=== PATIENT | female | born 1950 | race Caucasian/White ===

== ENCOUNTER 2018-04-25 11:04 | Day surgery (SDC) | payer OTHER, SELFPAY ==
--- NOTE | 2018-04-24 12:54 | PCM.HP.BLA ---
History and Physical Date of Admission: 04/25/18 67-year-old female history of overactive bladder urge incontinence we tried Botox with little success she comes back now for another consultation she wants to try interstim therapy. My nurse practitioner spoke extensively about what's involved in with the interstim therapy today I reviewed the procedure can do stage I procedure to place the temporary lead first of this is successful than will do a stage II and it's not successful than will remove the at the second surgery. All her questions are answered just has a hold her aspirin for the procedure. ALLERGIES: Lisinopril Zoloft MEDICATIONS: Aspirin 81 mg tablet,chewable Calcium + D Furosemide Iron Janumet Lantus Solostar 100 unit/ml (3 ml) insulin pen Lovastatin Meloxicam Multivitamin Nitrofurantoin Omeprazole Spironolactone Tramadol Hcl Tricor Venlafaxine Hcl PSH: Cystoscopy,with Botox Injection - 01/09/2018, 02/03/2016 NON- PSH: Patient documented to have received pneumococcal vaccination Pneumococcal Vaccine Admin Total Knee Replacement - 2004 PMH: Acute vaginitis - 11/14/2015 Urge incontinence - 11/14/2015 Urgency of urination - 11/14/2015, - 2015, - 2014, - 2013, - 2013 NON- PMH: Morbid (severe) obesity due to excess calories - 2013 Gastro-esophageal reflux disease without esophagitis Major depressive disorder, single episode, unspecified Mixed hyperlipidemia Type 2 diabetes mellitus without complications Immunizations: None FAMILY HISTORY: None SOCIAL HISTORY: Marital Status: Single Preferred Language: Luxembourgish; Ethnicity: Not Or ; Race: White Current Smoking Status: Patient does not smoke anymore. Smoking cessation counseling was provided. Does not use smokeless tobacco. Does not drink anymore. Does not use drugs. Drinks 4+ caffeinated drinks per day. Has not had a blood transfusion. REVIEW OF SYSTEMS: Constitutional: Patient denies fever, chills, weight loss, and weight gain. Cardiovascular: Patient reports swollen ankles. Patient denies chest pains. Respiratory: Patient denies shortness of breath. Gastrointestinal: Patient denies abdominal pain, nausea/vomiting, and change in bowels. Genitourinary: Patient reports frequent urination, leakage of urine, and frequent urinary tract infections. Patient denies urinary retention, get up at night to void, blood in urine, history of stones, difficulty starting stream, weak stream, and bedwetting. Notes: Updated from previous visit 10/28/2017 with review from patient as noted above. VITAL SIGNS: 04/17/2018 04:11 PM Weight 305 lb / 138.35 kg Height 64 in / 162.56 cm BP 134/78 mmHg BMI 52.3 kg/m? - BMI Counseling was provided. MULTI-SYSTEM PHYSICAL EXAMINATION: Constitutional: Obese. No physical deformities. Normally developed. Good grooming. Neck: Neck symmetrical, not swollen. Normal tracheal position. Cardiovascular: Normal temperature, normal extremity pulses, no swelling, no varicosities. Lymphatic: No enlargement of neck, axillae, groin. Skin: No paleness, no jaundice, no cyanosis. No lesion, no ulcer, no rash. Neurologic / Psychiatric: Oriented to time, oriented to place, oriented to person. No depression, no anxiety, no agitation. Gastrointestinal: Obese abdomen. No mass, no tenderness, no rigidity. Eyes: Normal conjunctivae. Normal eyelids. Musculoskeletal: using a cane. PAST DATA REVIEWED: Source Of History: Patient PROCEDURES: Urinalysis - [address] Dipstick Dipstick Cont'd Specimen: Voided Blood: Neg Appearance: Clear pH: 5.0 Color: Yellow Protein: Neg Glucose: Normal Urobilinogen: Neg Bilirubin: Neg Nitrites: Neg Ketones: Neg Leukocyte Esterase: Neg ASSESSMENT: ICD-10 Details 1 : Urge incontinence - N39.41 2 Urgency of urination - R39.15 3 NON-: Morbid (severe) obesity due to excess calories - E66.01 PLAN: Document Letter(s): Created for Patient: Clinical Summary Notes: 67-year-old female with history of overactive bladder urge incontinence failed medical therapy is still Botox were to proceed with interstim therapy staged implant one and two
[2018-04-25] VITALS (7 sets, daily range): BP systolic 102–130; BP diastolic 58–75; PULSE 83–87; RESP 16–18; TEMP 36.6–36.9; O2SAT 93–100; BMI 53.1
[2018-04-25] MEDS: Cefazolin 2 GM in 0.9% Normal Saline 100 ML IV (07:00)
[2018-04-25 12:00] LABS: Bedside Glucose 126 mg/dL (70-110)
--- NOTE | 2018-04-25 14:24 | DCINST_ITS ---
Discharge Diet: No Restrictions Discharge Activity: Return to Normal Activity, May Not Drive - for 2 days. Additional Activity Instructions:: f you have a catheter, remove on ___. If you have any problems after catheter is removed, call [phone] and ask for your doctor to be paged. Please be aware that pain medications may cause nausea. You should typically eat light foods as you take your pain medication. Pain medication may cause constipation, if this is a problem for you, please discuss with your doctor. Allergies/Adverse Reactions: Allergies lisinopril Adverse Reaction (Verified 04/21/18 10:08) COUGH sertraline [From Zoloft] Adverse Reaction (Verified 04/21/18 10:08) Unknown Medications to take at Discharge Aspirin E.C. [Ecotrin] 81 mg PO DAILY@0800 01/27/16 Calcium Carbonate/Vitamin D3 [Calcium 600-Vit D3 800 Tab] 2 each PO DAILY 01/27/16 Fenofibrate [Tricor] 145 mg PO DAILY 01/27/16 Furosemide [Lasix] 60 mg PO DAILY 01/27/16 Insulin Glargine [Lantus (BKC)] 44 units SC QHS 01/27/16 Lovastatin [Mevacor] 20 mg PO QHS 01/27/16 Multivitamin [Daily Multiple Vitamin] 1 each PO DAILY 01/27/16 Nitrofurantoin Macrocrystals [Macrobid] 100 mg PO DAILY 01/27/16 Sitagliptin Phos/Metformin HCl [Janumet Xr 50-1,000 mg Tablet] 2 tab PO DAILY 01/27/16 Spironolactone [Aldactone] 50 mg PO DAILY 01/27/16 Venlafaxine XR [Effexor Xr] 150 mg PO DAILY 01/27/16 Metoprolol Tartrate [Lopressor (Beta Alexys)] 25 mg PO DAILY 04/21/18 Omeprazole [Prilosec] 20 mg PO DAILY 04/21/18 Acetaminophen [Tylenol Extra Strength] 500 mg PO Q4H PRN PRN #20 tablet 04/25/18 Ibuprofen 600 mg PO Q6H PRN PRN #20 tablet 04/25/18 The following prescriptions were given: Acetaminophen [Tylenol Extra Strength] 500 mg PO Q4H PRN PRN #20 tablet PRN Reason: Pain Ibuprofen 600 mg PO Q6H PRN PRN #20 tablet PRN Reason: Pain Primary Care Physician: Padmini Calderon MD [Primary Care Provider] - Test Results: Test results from this visit will be discussed in further detail at your follow- up appointment, if applicable. Please Follow Up With: Dung Lentz MD When: keep appt for next surgery
--- NOTE | 2018-04-25 14:24 | PCM.OPRPT ---
Report of Operation Date of Procedure: 04/25/18 Pre-Operative Diagnosis: Overactive bladder and urge incontinence Post-Operative Diagnosis: Same Surgery/Procedure Performed:: InterStim stage I Description of Surgical Findings:: 67-year-old female has severe overactive bladder is failed medical therapy she also even failed Botox injections she has poor control of bladder and urge incontinence leakage of urine sudden urge to go and cannot hold her bladder. 67-year-old female taken back to the operating room after smooth induction of MAC local she was placed facedown on the table with a pillow we then prepped and draped the sacrum for InterStim therapy stage I. We used fluoroscopy to identify the sacral promontory's in the right and left side put the needle across to find the S3 foramen and then marked off the edges of the S3 foramen the right and left side, we then tilted the fluoroscopy laterally came in with the first needle we used a long needle because of patient's obesity and introduced the needle and we stimulated appear to be asked to so then we marched 2 cm cephalad tried again again could get in at the numb the periosteum little bit more and then finally I dropped the needle into the patient's right side on the S3 we then stimulated she is very sensitive practically lift off the table to for stimulation then returned on the stimulation we got good perlita and a good motor response of toe. Then after positioning this incision the skin skin and placement lidocaine into the skin and then advanced to the long wire through the trocar pulled the trocar and then advanced the sheath until the radiopaque marker and the sheath was between the anterior and posterior plate of the sacrum and then we advanced the stimulator through the sheath with a with a pre-curved curved set up nicely we then looked at the fluoroscopy we adjust the position of the stimulator so that there was 3 contact points below the posterior plate 1 contact point above the posterior plate we checked 012 and 3 of the stimulator and all 3 of them, all for bone we had good perlita response and toe response after confirming good placement of the lead we then pulled back the sheath the deployed the tines we then tunneled the lead to a pocket put a temporary boot on and temporary extension and template tunneled the temporary extension back we closed the incision over the lead placement and then closed the pocket and then placed the device on the remote with a belt and patient was taken back to the PACU in good condition to undergo training for the InterStim therapy stage I if the successful then she will have she will undergo placement of the generator. We closed the incisions with subcuticular stitches of Monocryl and dressings and bandages were placed. Type of Anesthesia:: General Drains: none - Admit VTE Documentation VTE Present on Admission: No VTE Mechan Device Prophylaxis: SCD's
== END 2018-04-25 15:18 | disposition home or self-care (01) ==
LOC: SDC 11:06 → AC 11:09
PROVIDERS: Family Provider Family Medicine; PCP Family Medicine; Referring Provider Urology; Visit Provider Urology
PROC: (CPT 64581; principal; 2018-04-25 12:40)
DX: N32.81 Overactive bladder (principal); N39.41 Urge incontinence; K21.9 Gastro-esophageal reflux disease without esophagitis; E78.2 Mixed hyperlipidemia; E11.9 Type 2 diabetes mellitus without complications; F32.9 Major depressive disorder, single episode, unspecified; Z87.891 Personal history of nicotine dependence; E66.01 Morbid (severe) obesity due to excess calories; Z68.43 Body mass index [BMI] 50.0-59.9, adult; Z71.3 Dietary counseling and surveillance; Z79.899 Other long term (current) drug therapy; Z79.82 Long term (current) use of aspirin; Z79.4 Long term (current) use of insulin; G47.30 Sleep apnea, unspecified
CPT/HCPCS: 64581; 76000; 82962; J7120; C1778; C1820; J2405

== ENCOUNTER 2018-05-09 05:57 | Day surgery (SDC) | payer OTHER, SELFPAY ==
[2018-04-25 11:41] VITALS: BMI 53.1
[2018-05-09 06:17] VITALS: BP 128/95; PULSE 84; RESP 16; TEMP 36.7; O2SAT 99; BMI 52.8
[2018-05-09 06:31] LABS: Bedside Glucose 143 mg/dL (70-110)
[2018-05-09] MEDS: Cefazolin 2 GM in 0.9% Normal Saline 100 ML IV (07:22)
--- NOTE | 2018-05-09 07:28 | HP.PCM_ITS ---
History and Physical Date of Admission: 05/09/18 67-year-old female history of overactive bladder urge incontinence we tried Botox with little success she comes back now for another consultation she wants to try interstim therapy. My nurse practitioner spoke extensively about what's involved in with the interstim therapy today I reviewed the procedure can do stage I procedure to place the temporary lead first of this is successful than will do a stage II and it's not successful than will remove the at the second surgery. All her questions are answered just has a hold her aspirin for the procedure. ALLERGIES: Lisinopril Zoloft MEDICATIONS: Aspirin 81 mg tablet,chewable Calcium + D Furosemide Iron Janumet Lantus Solostar 100 unit/ml (3 ml) insulin pen Lovastatin Meloxicam Multivitamin Nitrofurantoin Omeprazole Spironolactone Tramadol Hcl Tricor Venlafaxine Hcl PSH: Cystoscopy,with Botox Injection - 01/09/2018, 02/03/2016 NON- PSH: Patient documented to have received pneumococcal vaccination Pneumococcal Vaccine Admin Total Knee Replacement - 2004 PMH: Acute vaginitis - 11/14/2015 Urge incontinence - 11/14/2015 Urgency of urination - 11/14/2015, - 2015, - 2014, - 2013, - 2013 NON- PMH: Morbid (severe) obesity due to excess calories - 2013 Gastro-esophageal reflux disease without esophagitis Major depressive disorder, single episode, unspecified Mixed hyperlipidemia Type 2 diabetes mellitus without complications Immunizations: None FAMILY HISTORY: None SOCIAL HISTORY: Marital Status: Single Preferred Language: Luxembourgish; Ethnicity: Not Or ; Race: White Current Smoking Status: Patient does not smoke anymore. Smoking cessation counseling was provided. Does not use smokeless tobacco. Does not drink anymore. Does not use drugs. Drinks 4+ caffeinated drinks per day. Has not had a blood transfusion. REVIEW OF SYSTEMS: Constitutional: Patient denies fever, chills, weight loss, and weight gain. Cardiovascular: Patient reports swollen ankles. Patient denies chest pains. Respiratory: Patient denies shortness of breath. Gastrointestinal: Patient denies abdominal pain, nausea/vomiting, and change in bowels. Genitourinary: Patient reports frequent urination, leakage of urine, and frequent urinary tract infections. Patient denies urinary retention, get up at night to void, blood in urine, history of stones, difficulty starting stream, weak stream, and bedwetting. Notes: Updated from previous visit 10/28/2017 with review from patient as noted above. VITAL SIGNS: 04/17/2018 04:11 PM Weight 305 lb / 138.35 kg Height 64 in / 162.56 cm BP 134/78 mmHg BMI 52.3 kg/m? - BMI Counseling was provided. MULTI-SYSTEM PHYSICAL EXAMINATION: Constitutional: Obese. No physical deformities. Normally developed. Good grooming. Neck: Neck symmetrical, not swollen. Normal tracheal position. Cardiovascular: Normal temperature, normal extremity pulses, no swelling, no varicosities. Lymphatic: No enlargement of neck, axillae, groin. Skin: No paleness, no jaundice, no cyanosis. No lesion, no ulcer, no rash. Neurologic / Psychiatric: Oriented to time, oriented to place, oriented to person. No depression, no anxiety, no agitation. Gastrointestinal: Obese abdomen. No mass, no tenderness, no rigidity. Eyes: Normal conjunctivae. Normal eyelids. Musculoskeletal: using a cane. PAST DATA REVIEWED: Source Of History: Patient PROCEDURES: Urinalysis - [address] Dipstick Dipstick Cont'd Specimen: Voided Blood: Neg Appearance: Clear pH: 5.0 Color: Yellow Protein: Neg Glucose: Normal Urobilinogen: Neg Bilirubin: Neg Nitrites: Neg Ketones: Neg Leukocyte Esterase: Neg ASSESSMENT: ICD-10 Details 1 : Urge incontinence - N39.41 2 Urgency of urination - R39.15 3 NON-: Morbid (severe) obesity due to excess calories - E66.01 PLAN: Document Letter(s): Created for Patient: Clinical Summary Notes: 67-year-old female with history of overactive bladder urge incontinence failed medical therapy, s/p stage I interstim therapy and had a successful trail plan to proceed with stage II interstim therapy.
--- NOTE | 2018-05-09 07:30 | DCINST_ITS ---
Discharge Diet: Light diet - advance as tolerated Discharge Activity: May Shower May shower in (days): 2 Call your doctor if your incision/area has: Continuous Slow Oozing, Sudden Increased Bleeding, Increased Pain/ Swelling, Increased Redness Allergies/Adverse Reactions: Allergies lisinopril Adverse Reaction (Verified 05/07/18 14:03) COUGH sertraline [From Zoloft] Adverse Reaction (Verified 05/07/18 14:03) Unknown Medications to take at Discharge Aspirin E.C. [Ecotrin] 81 mg PO DAILY@0800 01/27/16 Calcium Carbonate/Vitamin D3 [Calcium 600-Vit D3 800 Tab] 2 each PO DAILY 01/27/16 Fenofibrate [Tricor] 145 mg PO DAILY 01/27/16 Furosemide [Lasix] 60 mg PO DAILY 01/27/16 Insulin Glargine [Lantus (BKC)] 44 units SC QHS 01/27/16 Lovastatin [Mevacor] 20 mg PO QHS 01/27/16 Multivitamin [Daily Multiple Vitamin] 1 each PO DAILY 01/27/16 Nitrofurantoin Macrocrystals [Macrobid] 100 mg PO DAILY 01/27/16 Sitagliptin Phos/Metformin HCl [Janumet Xr 50-1,000 mg Tablet] 2 tab PO DAILY 01/27/16 Spironolactone [Aldactone] 50 mg PO DAILY 01/27/16 Venlafaxine XR [Effexor Xr] 150 mg PO DAILY 01/27/16 Metoprolol Tartrate [Lopressor (Beta Alexys)] 25 mg PO DAILY 04/21/18 Omeprazole [Prilosec] 20 mg PO DAILY 04/21/18 Acetaminophen [Tylenol Extra Strength] 500 mg PO Q4H PRN PRN #20 tablet 04/25/18 Ibuprofen 600 mg PO Q6H PRN PRN #20 tablet 04/25/18 Primary Care Physician: Padmini Calderon MD [Primary Care Provider] - Test Results: Test results from this visit will be discussed in further detail at your follow- up appointment, if applicable. Please Follow Up With: Dung Lentz MD When: in 2 weeks, please call to make an appointment.
--- NOTE | 2018-05-09 07:51 | PCM.OPRPT ---
Report of Operation Date of Procedure: 05/09/18 Pre-Operative Diagnosis: Urge incontinence, status post stage I successful InterStim Post-Operative Diagnosis: Same Surgery/Procedure Performed:: Stage II InterStim implant Description of Surgical Findings:: 67-year-old female was taken back to the operating room after smooth induction of MAC local she was placed down on the table the bandages from the prior stage I InterStim were removed the back and site of the stage II lead was prepped and draped in usual sterile fashion, we infiltrated the skin with lidocaine 1% along the old site where the temporary lead was attached to the permanent lead. Using knife 15 blade knife to cut through the skin and then get through the dermis layer and then used sharp dissection to dissect down to the lead I then pulled the lead up took off the boot off the temporary extension cut off the suture pulled back the boot and then used the screw in the kit to unscrew the extension lead to the permanent lead. I then cut the extension lead and then the lead was then pulled out from underneath the drapes by the nursing staff. We then cleaned the permanent lead to remove all fluid and any blood I then brought the generator in place we put the generator onto the permanent lead and put it all the way through until all blue was showing to the indicators and then screwed down the bulk with 2 clicks. We then made a pocket and put the generator into the pocket with the [id number] sign face up we then tested for impedance impedance levels were low all below 4000, [employer] rep then checked the permanent lead to the generator and appear to be working functionally properly with low impedance. We then closed the skin with 3-0 Vicryl and then a 4-0 Monocryl Steri-Strips and bandages were placed the patient anesthetic was reversed and she was taken back to PACU in good condition. Type of Anesthesia:: General Drains: none - Admit VTE Documentation VTE Present on Admission: No VTE Mechan Device Prophylaxis: SCD's
[2018-05-09 07:57] VITALS: BP 112/67; BP 128/95; PULSE 82; RESP 18; TEMP 36.9; O2SAT 99
[2018-05-09 08:05] VITALS: BP 114/67; BP 128/95; PULSE 81; RESP 18; O2SAT 95
[2018-05-09 08:10] VITALS: BP 128/95; BP 98/51; PULSE 79; RESP 18; O2SAT 95
[2018-05-09 08:13] VITALS: BP 117/69; BP 128/95; PULSE 79; RESP 18; TEMP 36.8; O2SAT 96
[2018-05-09 09:15] VITALS: BP 128/95
== END 2018-05-09 09:15 | disposition home or self-care (01) ==
LOC: SDC 05:57 → AC 05:58
PROVIDERS: Family Provider Family Medicine; PCP Family Medicine; Referring Provider Urology; Visit Provider Urology
PROC: (CPT 64590; principal; 2018-05-09 07:20)
DX: N39.41 Urge incontinence (principal); N32.81 Overactive bladder; Z79.899 Other long term (current) drug therapy; Z79.82 Long term (current) use of aspirin; F32.9 Major depressive disorder, single episode, unspecified; K21.9 Gastro-esophageal reflux disease without esophagitis; E78.2 Mixed hyperlipidemia; E11.9 Type 2 diabetes mellitus without complications; E66.01 Morbid (severe) obesity due to excess calories; Z68.43 Body mass index [BMI] 50.0-59.9, adult; Z71.3 Dietary counseling and surveillance
CPT/HCPCS: 00400; 64590; 95972; 82962; J7120; C1767; J2405

== ENCOUNTER → 2018-05-29 16:51 | Outpatient (CLI) | payer OTHER, SELFPAY ==
[2018-05-09 06:17] VITALS: BMI 52.8
== END ==
PROVIDERS: Referring Provider Urology; Visit Provider Urology
DX: N39.0 Urinary tract infection, site not specified (principal)
CPT/HCPCS: 87077; 87086; 87088; 87186

== ENCOUNTER → 2021-11-22 | Outpatient (CLI) | payer MEDICARE, MEDICAID, SELFPAY ==
--- NOTE | 2021-11-22 14:00 | RAD_ITS ---
FLUOROSCOPIC GUIDED RIGHT SHOULDER STEROID INJECTION W/ ARTHROGRAM CLINICAL HISTORY: Shoulder pain, arthritis PERFORMING PHYSICIAN: Maged Munson MD DATE OF PROCEDURE: 11/22/2021. CAT SCAN TECHNOLOGIST: None. ESTIMATED BLOOD LOSS: Negligible SPECIMENS REMOVED: None COMPLICATIONS: None CONSENT: Informed, written consent was obtained from the patient, prior to procedure and following discussion of risks, benefits, alternatives and personnel. Fluoroscopy time 1:00 minutes. Contrast: 2 mL of Omnipaque 300 7 mL. The patient was positioned supine on the fluoroscopy table. The right shoulder was prepared in standard, sterile fashion. The overlying skin was anesthetized with Lidocaine. A 20 gauge spinal needle was advanced into the joint space. A small amount of contrast was injected confirming positioning after which a mixture of 2 mL of Bethamethasone and 4 mL of LIDOCAINE 1% was injected. The needle was withdrawn and sterile dressing was applied.. RAD/Inj/Asp Onel Jt Should/Hip/Knee IMPRESSION: 1. Uneventful right shoulder joint steroid injection. Electronically Signed: Junaid Munson MD at 15:21 EDT ,
[2021-11-22] MEDS: Lidocaine 2% (10 ml mdv) 10 ML Vial (14:13)
[2021-11-22] MEDS: Lidocaine 1% (20 ml mdv) 20 ML Vial 4 ML OPERA.SITE (14:15)
[2021-11-22] MEDS: Betamethasone/Betamethasone 30 MG/5 ML Vial 12 MG INTRAARTIC (14:15)
== END | disposition home or self-care (01) ==
PROVIDERS: PCP Family Medicine; Visit Provider Specialist
DX: M75.41 Impingement syndrome of right shoulder (principal)
CPT/HCPCS: 20610; 77002; Q9965; J0702

== ENCOUNTER 2023-08-23 05:05 | Day surgery (SDC) | payer MEDICARE, MEDICAID, SELFPAY ==
[2023-08-23] VITALS (7 sets, daily range): BP systolic 110–132; BP diastolic 52–71; PULSE 77–95; RESP 16–18; TEMP 36.4–36.8; O2SAT 99–100; BMI 48.4
[2023-08-23] MEDS: Lactated Ringers 1,000 ML 15 ML IV (06:28)
[2023-08-23 06:42] LABS: Bedside Glucose 137 mg/dL (74-106)
--- NOTE | 2023-08-23 06:47 | PRE.ANES_ITS ---
ASA Classification* ASA Classification ASA Classification: 3 Assessment & Plan Anesthesia* Anesthesia Assessment Anesthesia Assessment: Discussed sedation and/or anesthesia options, risks, benefits, and alternatives with patient/parents/legal guardian/POA. Questions invited. The patient/parents/legal guardian/POA seems to understand and agrees to proceed with anesthesia plan. Reviewed the physical assessment, medical history, allergy history and patient home medications list prior to surgery/procedure/anesthetic and documented any changes. Performed airway and anesthesia risk assessments. Anesthesia Type Anesthesia Type: MAC (GA bkup) Pre-Assessment Diagnosis/Proposed Procedure Planned Operative Procedure(s): REMOVAL INSTERSTIM THERAPY 1 Anesthesia History Anesthesia History - redrawer: Anesthesia History - redrawer Hx Hospitalization No 08/12/23 09:20 Any Problems With Anesthesia No 08/12/23 09:20 Cholinesterase deficiency No 08/12/23 09:20 You/Your Family Experience No 08/12/23 09:20 fever (hyperthermia) with Relationship Recent Exposure to Contagious No 08/23/23 06:02 Disease Does patient have nerve No 08/12/23 09:20 stimulator Patient instructed to have device shut off --Does patient have Pacemaker No 08/23/23 06:08 or ICD? When Was Last Pacemaker Check QUESTION #4 FULL TEXT: You/Your Family Experience fever (hyperthermia) with Anesthesia Last Oral Intake Last Oral intake: Last Oral Intake NPO since 20:30 08/23/23 06:08 Meds taken in AM with sips of No 08/23/23 06:08 water? Meds patient instructed to take am of surgery PONV PONV - redrawer: PONV - redrawer Female Yes 08/12/23 09:20 HX of Motion Sickness No 08/12/23 09:20 HX of N/V After Surgery No 08/12/23 09:20 Non-Smoker Yes 08/12/23 09:20 Duration of Surgery greater No 08/12/23 09:20 than 60 minutes Number of Risk Factors 2 08/12/23 09:20 PONV Score Moderate Risk 08/12/23 09:20 Height & Weight Height & Weight: Anesthesia: Height & Weight Height 5 ft 4 in 08/23/23 06:08 Weight: 127.913 kg 08/23/23 06:08 Body Mass Index (BMI) 48.4 08/23/23 06:08 Respiratory Assessment Respiratory Assessment - redrawer: Respiratory Tract Infection Hx - redrawer Hx Respiratory Tract Infection No 08/12/23 09:20 STOP Sleep Apnea STOP Sleep Apnea - redrawer: STOP Sleep Apnea - redrawer Hx Hypertension Yes: CONTROLLED WITH MED 08/12/23 09:20 Hx Sleep Apnea Yes 08/12/23 09:20 CPAP No 08/12/23 09:20 BIPAP Yes 08/12/23 09:20 Do you snore loudly (louder than talking or can be heard Do you often feel tired/ fatigued/ sleepy during daytime? Has anyone observed you stop breathing during sleep? STOP Results Positive 08/12/23 09:20 QUESTION #5 FULL TEXT : Do you snore loudly (louder than talking or can be heard through closed doors)? 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 Specify any problems Hx of Preganancy in last 3 No 08/12/23 09:20 Months Nurse Filling Out Transfusion DSCHRIBER 08/12/23 09:20 & Questions: Date: 08/12/23 08/12/23 09:20 Time: 09:08/12/23 09:20 Patient unable to answer at this time (ie. confused, unrespo /Reproduction History /Reproductive History - redrawer: /Reproductive Hx- redrawer Hx Now No 08/12/23 09:20 Gestational Age (in weeks): EDC: Hx Hx Para Hx Section SAB No 08/12/23 09:20 Active Medications Active Medications: Current Medications Generic Name Dose Route Start Last Admin Trade Name Freq PRN Reason Stop Dose Admin Cefazolin Sodium 2 gm/ Sodium 110 mls @ 150 mls/hr 08/23/23 07:30 Chloride IV 08/23/23 08:13 PREOP ONE Lactated Ringer's 1,000 mls @ 15 mls/hr 08/23/23 05:45 08/23/23 06:28 IV 15 mls/hr .Q48H MADONNA Administration Anesthesia Focused Assessment* Temperature: 97.6 F Pulse Rate: 87 Blood Pressure: 132/52 Respiratory Rate: 18 Pulse Ox: 100 Airway Assessment Mouth opens: >3 cm Mallampati Score: III Focused Labs Anesthesia Preop lab: CBC CHEMISTRY Creatinine 0.89 mg/dL (0.55-1.02) 05/11/20 14:15 POC Glucose 137 mg/dL (74-106) H 08/23/23 05:56 COAG Review of Systems (Anesthesia) ROS Narrative System reviewed and no additional complaints, except as documented. [facility] Medical History BiPAP (biphasic positive airway pressure) dependence Wears hearing aid Wears glasses Cancer Depression Anxiety History of steroid therapy Insulin dependent diabetes mellitus Ambulates with cane Arthritis Bladder disease Low iron High cholesterol Hx of diabetic neuropathy Restless legs Syncope Dietary restriction Gastric reflux Former smoker Asthma COPD (chronic obstructive pulmonary disease) Shortness of breath on exertion History of edema History of echocardiogram History of stress test Cardiology follow-up encounter Hypertension Home Medications ?Medication ?Instructions ?Recorded ?Last Taken ?Type calcium carbonate 600 mg-vitamin 1 tab PO DAILY SUPPLEMENT 01/27/16 08/22/23 History D3 20 mcg (800 unit) tablet fenofibrate nanocrystallized 145 145 mg PO QHS CHOLESTEROL 01/27/16 08/22/23 History mg tablet furosemide 40 mg tablet 60 mg PO DAILY HTN 01/27/16 08/22/23 History insulin glargine 100 unit/mL (3 37 unit subcut QHS DIABETES 01/27/16 08/22/23 History mL) subcutaneous pen (Lantus 15 unit Solostar U-100 Insulin) lovastatin 20 mg tablet 20 mg PO QHS CHOLESTEROL 01/27/16 08/22/23 History multivitamin (Daily Multiple 1 ea PO DAILY SUPPLEMENT 01/27/16 08/22/23 History tablet) nitrofurantoin 100 mg PO BID BLADDER 01/27/16 08/22/23 History monohydrate/macrocrystals 100 mg capsule spironolactone 100 mg tablet 50 mg PO DAILY HTN 01/27/16 08/22/23 History (Aldactone) venlafaxine 150 mg 150 mg PO DAILY DEPRESSION 01/27/16 08/22/23 History capsule,extended release 24 hr omeprazole 20 mg capsule,delayed 20 mg PO DAILY GERD 04/21/18 08/22/23 History release ibuprofen 600 mg tablet 600 mg PO Q6H PRN PRN Pain #20 tabs 04/25/18 Unknown Rx albuterol 90 mcg/actuation aerosol 90 mcg inhalation BID PRN PRN 08/12/23 08/22/23 History inhaler shortness of breath or wheezing blood-glucose sensor (FreeStyle 08/12/23 Unknown History Marta 3 Sensor device) cholecalciferol (vitamin D3) 25 25 mcg PO DAILY 08/12/23 08/22/23 History mcg (1,000 unit) capsule (Vitamin D3) dulaglutide 3 mg/0.5 mL 3 mg subcut WE 08/12/23 08/22/23 History subcutaneous pen injector (Trulicity) fluticasone propionate 115 2 inh inhalation BID 08/12/23 08/22/23 History mcg-salmeterol 21 mcg/actuation HFA inhaler (Advair HFA) fluticasone propionate 50 1 spray intranasal DAILY 08/12/23 08/22/23 History mcg/actuation nasal spray,suspension levocetirizine 5 mg tablet 5 mg PO QHS 08/12/23 08/22/23 History losartan 25 mg tablet 25 mg PO DAILY 08/12/23 08/22/23 History mirabegron 50 mg tablet,extended 50 mg PO DAILY 08/12/23 08/22/23 History release 24 hr (Myrbetriq) tolterodine 4 mg capsule,extended 4 mg PO DAILY 08/12/23 08/22/23 History release 24 hr Allergy/AdvReac Type Severity Reaction Status Date / Time lisinopril AdvReac COUGH Verified 08/23/23 05:57 sertraline (From Zoloft) AdvReac Unknown Verified 08/23/23 05:57 Surgical History History of cardiac catheterization Hx of right cataract extraction Hx of left cataract extraction History of esophagogastroduodenoscopy (EGD) Hx of colonoscopy History of cystoscopy Hx of tonsillectomy Hx of tubal ligation Hx of total knee arthroplasty Hx of total knee arthroplasty Hx of cystoscopy Social History Smoking Status: Former smoker
[2023-08-23] MEDS: Cefazolin 2 GM in 0.9% Normal Saline (100mL Bag) 100 ML IV (07:25)
[2023-08-23] MEDS: Lidocaine 1% (30 ml sdv) 30 ML Vial (07:33)
--- NOTE | 2023-08-23 08:06 | PCM.HP.STD ---
HPI - General General Date of Service: 08/23/23 Chief Complaint: Nonfunctioning InterStim device HPI Narrative FELA MCCONNELL, is a 72 F who presents for removal of a nonfunctioning InterStim therapy that was placed a long time ago patient desires to have it removed also she plans to get an MRI of the back and it was interfering with getting that. [facility] Medical History BiPAP (biphasic positive airway pressure) dependence Wears hearing aid Wears glasses Cancer Depression Anxiety History of steroid therapy Insulin dependent diabetes mellitus Ambulates with cane Arthritis Bladder disease Low iron High cholesterol Hx of diabetic neuropathy Restless legs Syncope Dietary restriction Gastric reflux Former smoker Asthma COPD (chronic obstructive pulmonary disease) Shortness of breath on exertion History of edema History of echocardiogram History of stress test Cardiology follow-up encounter Hypertension Home Medications ?Medication ?Instructions ?Recorded ?Last Taken ?Type calcium carbonate 600 mg-vitamin 1 tab PO DAILY SUPPLEMENT 01/27/16 08/22/23 History D3 20 mcg (800 unit) tablet fenofibrate nanocrystallized 145 145 mg PO QHS CHOLESTEROL 01/27/16 08/22/23 History mg tablet furosemide 40 mg tablet 60 mg PO DAILY HTN 01/27/16 08/22/23 History insulin glargine 100 unit/mL (3 37 unit subcut QHS DIABETES 01/27/16 08/22/23 History mL) subcutaneous pen (Lantus 15 unit Solostar U-100 Insulin) lovastatin 20 mg tablet 20 mg PO QHS CHOLESTEROL 01/27/16 08/22/23 History multivitamin (Daily Multiple 1 ea PO DAILY SUPPLEMENT 01/27/16 08/22/23 History tablet) nitrofurantoin 100 mg PO BID BLADDER 01/27/16 08/22/23 History monohydrate/macrocrystals 100 mg capsule spironolactone 100 mg tablet 50 mg PO DAILY HTN 01/27/16 08/22/23 History (Aldactone) venlafaxine 150 mg 150 mg PO DAILY DEPRESSION 01/27/16 08/22/23 History capsule,extended release 24 hr omeprazole 20 mg capsule,delayed 20 mg PO DAILY GERD 04/21/18 08/22/23 History release ibuprofen 600 mg tablet 600 mg PO Q6H PRN PRN Pain #20 tabs 02/22/19 Unknown Rx albuterol 90 mcg/actuation aerosol 90 mcg inhalation BID PRN PRN 08/12/23 08/22/23 History inhaler shortness of breath or wheezing blood-glucose sensor (FreeStyle 08/12/23 Unknown History Marta 3 Sensor device) cholecalciferol (vitamin D3) 25 25 mcg PO DAILY 08/12/23 08/22/23 History mcg (1,000 unit) capsule (Vitamin D3) dulaglutide 3 mg/0.5 mL 3 mg subcut WE 08/12/23 08/22/23 History subcutaneous pen injector (Trulicity) fluticasone propionate 115 2 inh inhalation BID 08/12/23 08/22/23 History mcg-salmeterol 21 mcg/actuation HFA inhaler (Advair HFA) fluticasone propionate 50 1 spray intranasal DAILY 08/12/23 08/22/23 History mcg/actuation nasal spray,suspension levocetirizine 5 mg tablet 5 mg PO QHS 08/12/23 08/22/23 History losartan 25 mg tablet 25 mg PO DAILY 08/12/23 08/22/23 History mirabegron 50 mg tablet,extended 50 mg PO DAILY 08/12/23 08/22/23 History release 24 hr (Myrbetriq) tolterodine 4 mg capsule,extended 4 mg PO DAILY 08/12/23 08/22/23 History release 24 hr cephalexin 500 mg capsule 500 mg PO TID #15 caps 08/23/23 Unknown Rx ibuprofen 600 mg tablet 600 mg PO Q6H PRN fever or pain 08/23/23 Unknown Rx #20 tabs Allergy/AdvReac Type Severity Reaction Status Date / Time lisinopril AdvReac COUGH Verified 08/23/23 05:57 sertraline (From Zoloft) AdvReac Unknown Verified 08/23/23 05:57 Surgical History History of cardiac catheterization Hx of right cataract extraction Hx of left cataract extraction History of esophagogastroduodenoscopy (EGD) Hx of colonoscopy History of cystoscopy Hx of tonsillectomy Hx of tubal ligation Hx of total knee arthroplasty Hx of total knee arthroplasty Hx of cystoscopy Social History Smoking Status: Former smoker Vital Signs Vital Signs Vital Signs: 08/23/23 06:02 08/23/23 06:08 08/23/23 06:47 Temperature 97.6 F L 97.6 F L Temperature Source Temporal Pulse Rate 87 87 Respiratory Rate 18 18 Respiratory Pattern Normal Blood Pressure 132/52 H 132/52 H Blood Pressure Mean 78 Blood Pressure Source Monitor Blood Pressure Position Semi-Fowlers Blood Pressure Location Right Arm Pulse Ox 100 100 Oxygen Delivery Method Room Air Weight Weight: 127.913 kg Body Mass Index (BMI) 48.4 Results Lab / Micro Data Labs: Laboratory Results - last 24 hr 08/23/23 05:56: POC Glucose 137 H
--- NOTE | 2023-08-23 08:07 | DCINST_ITS ---
Discharge Instructions Diet Discharge Diet: No restrictions Activity Discharge Activity: Return to Normal Activity and May Not Drive (while taking narcotic pain medications.) Dressing / Incision Call your doctor if you observe: Fever of 101 or Higher Follow Up Care Please Follow Up With: Dung Lentz MD When: Call [phone] for an appointment Test Results: Test results from this visit will be discussed in further detail at your follow- up appointment, if applicable. Discharge Plan Admission Primary Reason for Your Visit: removal of interstim Attending Provider: Dung Lentz Primary Care Provider: Padmini Franklin Instructions Print Language: Montenegrin Discharge Orders/Prescriptions Prescriptions: New cephalexin 500 mg capsule 500 mg PO TID Qty: 15 0RF ibuprofen 600 mg tablet 600 mg PO Q6H PRN (Reason: fever or pain) Qty: 20 0RF Continued multivitamin [Daily Multiple] 1 EACH tablet 1 ea PO DAILY venlafaxine 150 MG capsule 150 mg PO DAILY nitrofurantoin monohyd/m-cryst 100 MG capsule 100 mg PO BID fenofibrate nanocrystallized 145 MG tablet 145 mg PO QHS calcium carbonate-vitamin D3 1 EACH tablet 1 tab PO DAILY furosemide 40 MG tablet 60 mg PO DAILY spironolactone [Aldactone] 100 MG tablet 50 mg PO DAILY lovastatin 20 MG tablet 20 mg PO QHS insulin glargine [Lantus Solostar U-100 Insulin] 100 UNITS/ML insulin pen 37 unit subcut QHS omeprazole 20 MG capsule 20 mg PO DAILY ibuprofen 600 MG tablet 600 mg PO Q6H PRN PRN (Reason: Pain) Qty: 20 0RF levocetirizine 5 mg tablet 5 mg PO QHS losartan 25 mg tablet 25 mg PO DAILY tolterodine 4 mg capsule,extended release 24hr 4 mg PO DAILY cholecalciferol (vitamin D3) [Vitamin D3] 25 mcg (1,000 unit) capsule 25 mcg PO DAILY fluticasone propion-salmeterol [Advair HFA] 115-21 mcg/actuation HFA aerosol inhaler 2 inh inhalation BID fluticasone propionate 50 mcg/actuation spray,suspension 1 spray INTRANASAL DAILY Trulicity 3 mg/0.5 mL pen injector 3 mg subcut WE (DME) FreeStyle Marta 3 Sensor Device MISCELLANEOUS Patient Comments: [NO ORIGINAL SIG] albuterol 90 mcg/actuation aerosol 90 mcg inhalation BID PRN PRN (Reason: shortness of breath or wheezing) mirabegron [Myrbetriq] 50 mg tablet extended release 24 hr 50 mg PO DAILY Referrals / Follow Up: Padmini Franklin DO [Primary Care Provider] - Disposition Disposition (needs filled in before D/C Order can be placed): Home, Self Care
--- NOTE | 2023-08-23 08:07 | PCM.OPRPT ---
Report of Operation Date of Procedure: 08/23/23 Pre-Operative Diagnosis: Nonfunctioning InterStim therapy device Post-Operative Diagnosis: The same Surgery/Procedure Performed:: Removal of InterStim therapy Description of Surgical Findings:: Patient was taken back to the operating room after induction of a MAC local she was placed facedown on the table comforted with pillows I then had marked the site of the InterStim therapy in the back ready and infiltrated the prior incision over the battery with lidocaine 1% plain and then made an incision down to the pocket of the InterStim generator. The pocket was then opened up sharply to use hemostasis to control bleeding and then pulled out the generator for the InterStim device I then put a clamp on the one end of the lead and cut the other lead and remove the generator I then pulled on the lead to try identify the pocket I made a incision in the lower tailbone but could not reach the lead from that site so then I made a second incision above the first incision and I was able to reach the lead from here I then pulled the lead from the incision in the midline sacral area pulled the lead up and then cut the lead and then I was able to then pulled the tunneled part of the lead out that was tunneled into the pocket. I then gently was pulling the lead up to get it freed there were times that holding in the lead and then the lead did break so in order to get the rest of the lead out I had to extend the incision and then reached out with a hemostat was able to grab the end of the lead that had broken off the lead had broken and tried to pull it out since it been under so long and it was extremely adherent and densely adherent. I then very carefully extended the incision and opened up the site collected down to the sacral bone and then with a hemostat I then freed up lead until I got the rest of the lead removed and I freed up the tines. I then inspected it was a complete removal of the InterStim device and complete removal of the lead the lead did break in the removal but I was able to get the rest of the fragments out it came out of 2 fragments I checked there was no residual fragments left. I then closed the incisions with subcuticular stitches Steri-Strips and dressings were placed patient's anesthetic was emergently taken back to PACU in good condition follow-up for postop check in a few weeks we will give her antibiotics and some mild pain medicine. Surgeon: Tor,Cristobal Type of Anesthesia: General Estimated Blood Loss (mL): 5 Admit VTE Documentation VTE Present on Admission: No VTE Mechan Device Prophylaxis: SCD's VTE Pharm Prophylaxis ordered?: No
--- NOTE | 2023-08-23 08:15 | PCM.POST.ANE ---
Anesthesia: Postop Eval I Current Vital Signs Temperature: 98.3 F Pulse Rate: 95 Blood Pressure: 124/65 Respiratory Rate: 16 Pulse Ox: 99 Oxygen Delivery Method: Room Air Assessment Airway patent: Yes Spontaneous unlabored respirations: Yes Mental status: Awake and Calm nausea: No Vomiting: No Anesthesia Complication: No Fluid Hydration Crystalloid volume administer (ml): 700 Total IV fluid infused: 700 Progress Note Anesthesia document: Postop Eval 1 completed: Yes
--- NOTE | 2023-08-23 08:25 | POSTOPAN2_ITS ---
Anesthesia Postop Eval I Sum Postop Eval Completion status Anesthesia document: Postop Eval 1 completed: Yes Anesthesia Postop Eval I Summary Anesthesia Postop Eval I Summary: Anesthesia Postop Eval I: Assessment Summary Airway patent Yes 08/23/23 08:18 SKIP MINER BLASTING.MDOT Spontaneous unlabored Yes 08/23/23 08:18 SKIP MINER BLASTING.MDOT respirations Mental status Awake,Calm 08/23/23 08:18 SKIP MINER BLASTING.MDOT nausea No 08/23/23 08:18 SKIP MINER BLASTING.MDOT Vomiting No 08/23/23 08:18 SKIP MINER BLASTING.MDOT Anesthesia Postop Eval I: Fluid Summary Crystalloid volume administer 700 08/23/23 08:18 SKIP MINER BLASTING.MDOT (ml) Colloids volume administered ( ml) Blood Product volume administered (ml) Total IV fluid infused 700 08/23/23 08:18 SKIP MINER BLASTING.MDOT Anesthesia Postop Eval I: Summary Notes Anesthesia Complication No 08/23/23 08:18 SKIP MINER BLASTING.MDOT Anesthesia Complication Comment: Post-operative progress note Anesthesia: Postop Eval II Evaluation Mental status: Awake Pain Level: 0 nausea: No Vomiting: No Complications Anesthesia Complication: No
--- NOTE | 2023-08-23 08:25 | PCM.POSTANE2 ---
Anesthesia Postop Eval I Sum Postop Eval Completion status Anesthesia document: Postop Eval 1 completed: Yes Anesthesia Postop Eval I Summary Anesthesia Postop Eval I Summary: Anesthesia Postop Eval I: Assessment Summary Airway patent Yes 08/23/23 08:18 MANAGER CATH LAB.MDOT Spontaneous unlabored Yes 08/23/23 08:18 MANAGER CATH LAB.MDOT respirations Mental status Awake,Calm 08/23/23 08:18 MANAGER CATH LAB.MDOT nausea No 08/23/23 08:18 MANAGER CATH LAB.MDOT Vomiting No 08/23/23 08:18 MANAGER CATH LAB.MDOT Anesthesia Postop Eval I: Fluid Summary Crystalloid volume administer 700 08/23/23 08:18 MANAGER CATH LAB.MDOT (ml) Colloids volume administered ( ml) Blood Product volume administered (ml) Total IV fluid infused 700 08/23/23 08:18 MANAGER CATH LAB.MDOT Anesthesia Postop Eval I: Summary Notes Anesthesia Complication No 08/23/23 08:18 MANAGER CATH LAB.MDOT Anesthesia Complication Comment: Post-operative progress note Anesthesia: Postop Eval II Evaluation Mental status: Awake Pain Level: 0 nausea: No Vomiting: No Complications Anesthesia Complication: No
== END 2023-08-23 08:53 | disposition home or self-care (01) ==
LOC: SDC 05:17 → AC 05:18
PROVIDERS: PCP Family Medicine; Referring Provider Urology; Visit Provider Urology
PROC: (CPT 64585; principal; 2023-08-23 07:15)
DX: Z45.42 Encounter for adjustment and management of neurostimulator (principal); J44.9 Chronic obstructive pulmonary disease, unspecified; E11.40 Type 2 diabetes mellitus with diabetic neuropathy, unspecified; Z79.4 Long term (current) use of insulin; E78.00 Pure hypercholesterolemia, unspecified; I10 Essential (primary) hypertension; F41.9 Anxiety disorder, unspecified; F32.A Depression, unspecified; K21.9 Gastro-esophageal reflux disease without esophagitis; Z87.891 Personal history of nicotine dependence; Z79.51 Long term (current) use of inhaled steroids; Z79.899 Other long term (current) drug therapy
CPT/HCPCS: 64585; 82962; J7120; J2405